=== PATIENT | male | born 1985 | race Caucasian/White ===

== ENCOUNTER 2021-08-28 14:55 | Emergency (ER) | payer OTHER ==
[2021-08-28 15:04] VITALS: TEMP 98.7
--- NOTE | 2021-08-28 16:32 | ED ---
Wound/Laceration HPI - General Chief Complaint: Wound/Laceration Stated Complaint: Head Lac Time Seen by Provider: 08/28/21 15:10 Source: patient, RN notes reviewed Mode of arrival: ambulatory Limitations: no limitations - History of Present Illness Initial Comments: Patient is a 36-year-old male presenting to the emergency department with concerns of a laceration to top of his forehead. Patient states he was holding a piece of wood, the wood slipped and hit him in the top of the head. He denies loss of consciousness, bleeding is controlled. He is not on blood thinners. He admits to having some mild discomfort in the laceration area thatcan headache. No dizziness or lightheadedness, no nausea or vomiting. He has no further complaints. - Related Data Allergies Allergy/AdvReac Type Severity Reaction Status Date / Time No Known Allergies Allergy Verified 08/28/21 15:04 Review of Systems ROS Statement: Those systems with pertinent positive or pertinent negative responses have been documented in the HPI. ROS Other: All systems not noted in ROS Statement are negative. Past Medical History Past Medical History: No Reported History History of Any Multi-Drug Resistant Organisms: None Reported Past Surgical History: No Surgical Hx Reported Past Psychological History: No Psychological Hx Reported Smoking Status: Current every day smoker Past Alcohol Use History: Occasional Past Drug Use History: None Reported General Exam - General Exam Comments Initial Comments: GENERAL: Patient is well-developed and well-nourished. Patient is nontoxic and in no acute distress. HEAD: Atraumatic, normocephalic. No hematoma. EYES: Pupils equal round and reactive to light, extraocular movements intact, sclera anicteric, conjunctiva are normal. Eyelids were unremarkable. ENT: TMs normal, nares patent, oropharynx clear without exudates. Moist mucous membranes. NECK: Normal range of motion, supple without lymphadenopathy or JVD. No midline tenderness. LUNGS: Unlabored respirations. Breath sounds clear to auscultation bilaterally and equal. No wheezes rales or rhonchi. HEART: Regular rate and rhythm without murmurs, rubs or gallops. MUSCULOSKELETAL: Normal extremities with adequate strength and normal range of motion, no pitting or edema. No clubbing or cyanosis. NEUROLOGICAL: Patient is alert and oriented x 3. Motor and sensory are also intact. Cranial nerves II through XII grossly intact. Symmetrical smile. Normal speech, normal gait. PSYCH: Normal mood, normal affect. SKIN: Warm, Dry, normal turgor, no rashes. Patient has a 4 cm laceration to the top of the scalp, no active bleeding. Limitations: no limitations Course Vital Signs 08/28/21 08/28/21 15:00 16:39 Temperature 98.7 F Pulse Rate 91 87 Respiratory 20 16 Rate Blood Pressure 161/99 153/87 O2 Sat by Pulse 98 95 Oximetry Procedures - Laceration Laceration #1 Consent Obtained: verbal consent Indication: laceration Site: scalp Size (cm): 4 Description: linear Depth: simple, single layer Patient Tolerated Procedure: well Additional Comments: Patient's wound was cleaned, closed with 5 sayda. He tolerated procedure well. Medical Decision Making - Medical Decision Making Patient is a 36-year-old male presenting with a 4 cm laceration top of his head after a board fell on him. No loss of conscious, is not on blood thinners. His exam is unremarkable. Patient's wound was cleaned, closed with 5 sayda. He tolerated well. Patient will sayda removed in 7-10 days. He is agreeable to this plan of care. He is up-to-date with his tetanus. Disposition Clinical Impression: Scalp laceration Disposition: HOME SELF-CARE Condition: Stable Instructions (If sedation given, give patient instructions): Staple [facility] (ED) Additional Instructions: Please return to the Emergency Department if symptoms worsen or any other concerns. Sayda need to be removed in 7-10 days. Keep area clean and dry. Mental Tylenol and/or ibuprofen for any discomfort, ice to the area. Showers are okay, pat area dry afterwards. Is patient prescribed a controlled substance at d/c from ED?: No Referrals: None,Stated [Primary Care Provider] - 1-2 days Time of Disposition: 16:32
[2021-08-28 16:40] VITALS: BP 153/87; PULSE 87; RESP 16
== END 2021-08-28 16:40 | disposition home or self-care (01) ==
LOC: EC 14:55
DX: S01.01XA Laceration without foreign body of scalp, initial encounter (principal); F17.200 Nicotine dependence, unspecified, uncomplicated; W22.8XXA Striking against or struck by other objects, initial encounter
CPT/HCPCS: 12001; 99282